=== PATIENT | male | born 1960 | race Caucasian/White ===

== ENCOUNTER 2021-07-16 14:31 | Emergency (ER) | payer BC ==
[~2021-07-16] VITALS: Ht 167.6 cm; Wt 97.1 kg
[2021-07-16 15:34] LABS: HEMOGLOBIN 17.6 gm/dl (14.0-17.5); RED BLOOD COUNT 5.81 M/UL (4.20-5.50); WHITE BLOOD COUNT 3.7 K/UL (4.5-11.0)
== END 2021-07-16 17:35 | disposition home or self-care (01) ==
LOC: ER1 14:31
PROVIDERS: Physician Assistant
DX: Z23 Encounter for immunization (principal); U07.1 COVID-19
CPT/HCPCS: 80048; 85025; 99284; M0243